=== PATIENT | female | born 1975 | race Caucasian/White ===

== ENCOUNTER 2016-12-20 19:27 | Emergency (ER) | payer SELFPAY ==
[~2016-12-20] VITALS: Ht 162.5 cm; Wt 81.6 kg
[~2016-12-20 19:27] MED LIST: AMOXIL500 MG PO; HYDROCODONE BIT1 T11 PO; MOTRIN800 MG PO; NAPROSYN500 MG PO; TRAMADOL HCL50 MG PO; TRIMOX500 MG PO
[2016-12-20 19:38] VITALS: BP 132/60
[2016-12-20] MEDS ORDERED: NAPROSYN500 MG PO (21:27)
== END 2016-12-20 22:12 | disposition home or self-care (01) ==
LOC: ED 19:27
DX: S06.0X0A Concussion without loss of consciousness, initial encounter (principal); S00.12XA Contusion of left eyelid and periocular area, initial encounter; F17.200 Nicotine dependence, unspecified, uncomplicated; W21.07XA Struck by softball, initial encounter; Y93.64 Activity, baseball; Y92.89 Other specified places as the place of occurrence of the external cause; Y99.9 Unspecified external cause status

== ENCOUNTER 2017-08-13 20:12 | Emergency (ER) | payer OTHER ==
[~2017-08-13] VITALS: Ht 162.5 cm; Wt 68.0 kg
[2017-08-13 20:22] VITALS: BP 132/74
[2017-08-13] MEDS ORDERED: PREDNISONE20 M1 PO (20:23)
== END 2017-08-13 20:30 | disposition home or self-care (01) ==
LOC: ED
DX: L23.7 Allergic contact dermatitis due to plants, except food (principal)

== ENCOUNTER 2021-01-26 12:55 | Emergency (ER) | payer SELFPAY ==
[~2021-01-26] VITALS: Ht 162.5 cm; Wt 81.6 kg
[~2021-01-26 12:55] MED LIST changes: +PREDNISONE20 M1 PO
[2021-01-26 13:20] VITALS: BP 112/68
[2021-01-26] MEDS ORDERED: ZITHROMAX250 MG PO (16:21)
[2021-01-26] MEDS ORDERED: PREDNISONE20 M1 PO (16:21)
== END 2021-01-26 16:22 | disposition home or self-care (01) ==
LOC: ED 12:55
DX: J40 Bronchitis, not specified as acute or chronic (principal); Z20.822 Contact with and (suspected) exposure to COVID-19

== ENCOUNTER → 2022-11-03 | Outpatient (CLI) | payer BC ==
[~2022-11-03] MED LIST changes: +ZITHROMAX250 MG PO
== END | disposition home or self-care (01) ==
LOC: MAMMO 08:58
PROVIDERS: ATTEND Nurse Practitioner
DX: Z12.31 Encounter for screening mammogram for malignant neoplasm of breast (principal)